=== PATIENT | male | born 1985 | race African-American/Black ===

== ENCOUNTER 2020-01-13 11:59 | Emergency (ER) | payer OTHER ==
[~2020-01-13] VITALS: Ht 188 cm; Wt 90.7 kg
[~2020-01-13 11:59] MED LIST: BACTRIM DS TAB1 EAC1 ORAL; IBUPROFEN800 MG ORAL; NORCO 5-325 TA1 EACH ORAL
--- NOTE | 2020-01-13 12:21 | Emergency Room Report ---
History of Present Illness General Chief Complaint: Upper Respiratory Illness Source: Patient Present Illness HPI 34-year-old male with no symptom past medical history other than daily marijuana smoker complaining of 1 week of cough and congestion and feeling pressure in chest after coughing. Denies any recent travel or coming contact with people who have travel. Denies fever and chills,. Reports that 1 week ago has sore throat and congestion. Denies tobacco smoke, alcohol intake, no other associate symptoms. Is sitting comfortably with stable vital signs. COVID-19 risk:Travel to affect: No Has patient experienced cunningham: No Allergies: Coded Allergies: No Known Allergies (Unverified , 09/20/14) Patient History Past Medical History: see triage record Past Surgical History: none Pertinent Family History: none Social History: Reports: drug use - Marijuana use Immunizations: UTD Reviewed Nursing Documentation: PMH: Agreed; PSxH: Agreed Nursing Documentation-PMH Past Medical History: No Stated History Review of Systems All Other Systems: negative except mentioned in HPI Physical Exam Vital Signs Date Time Temp Pulse Resp B/P (MAP) Pulse Ox O2 Delivery O2 Flow Rate FiO2 01/13/20 12:04 97.9 77 17 116/74 (88) 95 Room Air Sp02 EP Interpretation: reviewed, normal General Appearance: no apparent distress, alert, GCS 15, non-toxic Head: normocephalic, atraumatic Eyes: bilateral eye normal inspection, bilateral eye PERRL ENT: hearing grossly normal, normal pharynx, no angioedema, normal voice Neck: full range of motion, supple, no meningismus, no bony tend, supple/symm/ no masses Respiratory: chest non-tender, lungs clear, normal breath sounds, no rhonchi, no respiratory distress, no retraction, no wheezing, speaking full sentences Cardiovascular #1: regular rate, rhythm, no edema Gastrointestinal: normal bowel sounds, non tender, soft, non-distended, no guarding, no rebound Rectal: deferred Musculoskeletal: back normal, normal range of motion, gait/station normal, non- tender Neurologic: alert, motor strength/tone normal, oriented x3, sensory intact, responsive, speech normal Psychiatric: judgement/insight normal, memory normal, mood/affect normal, no suicidal/homicidal ideation Skin: no rash Lymphatic: no adenopathy Medical Decision Making PA Attestation All my diagnosis and treatment plans were reviewed ad discussed with my supervising physician Dr. Van Diagnostic Impression: Primary Impression: Pneumonitis ER Course 34-year-old male with no symptom past medical history other than daily marijuana smoker complaining of 1 week of cough and congestion and feeling pressure in chest after coughing. Denies any recent travel or coming contact with people who have travel. Denies fever and chills,. Reports that 1 week ago has sore throat and congestion. Denies tobacco smoke, alcohol intake, no other associate symptoms. Is sitting comfortably with stable vital signs. Ddx considered but are not limited to: bronchitis, PNA, URI viral, bacterial bronchitis, pneumonitis Vital signs: are WNL, pt. is afebrile H&PE are most consistent with: Pneumonitis ORDERS: Azithromycin, prednisone, Phenergan DM, Tessalon Perles, albuterol ED INTERVENTIONS: None required at this time. DISCHARGE: At this time pt. is stable for d/c to home. Will provide printed patient care instructions, and any necessary prescriptions. Care plan and follow up instructions have been discussed with the patient prior to discharge. Lungs are clear to auscultation, no further imaging needed. Patient is low risk for further evaluation, take medication as directed, follow-up primary care provider, increase oral hydration, worsening symptoms Last Vital Signs Date Time Temp Pulse Resp B/P (MAP) Pulse Ox O2 Delivery O2 Flow Rate FiO2 01/13/20 12:04 97.9 77 17 116/74 (88) 95 Room Air Disposition: HOME, SELF-CARE Condition: Stable Scripts Prednisone* (PREDNISONE*) 20 Mg Tablet 40 MG ORAL DAILY for 5 Days, #10 TAB Prov: Luz Sibley 01/13/20 Albuterol Sulfate (VENTOLIN HFA) 18 Gm Hfa.aer.ad 2 PUFFS INH EVERY 6 HOURS, #18 GM 0 Refills Prov: Luz Sibley 01/13/20 Benzonatate* (TESSALON PERLE*) 100 Mg Capsule 100 MG ORAL THREE TIMES A DAY, #21 PERLE Prov: Luz Sibley 01/13/20 D-Methorphan Hb/Prometh Hcl* (PROMETHAZINE-DM SYRUP*) 118 Ml Syrup 5 ML ORAL BEDTIME PRN for For Cough, #120 ML 0 Refills Prov: Luz Sibley 01/13/20 Azithromycin* (ZITHROMAX*) 250 Mg Tablet 250 MG ORAL DAILY, #6 TAB 0 Refills Take two tables once daily for 1 day, then one tablet once daily for 4 days. Prov: Luz Sibley 01/13/20 Patient Instructions: Pneumonitis Additional Instructions: Take medication as directed, follow-up with your primary care provider, refrain from smoking, if worsening symptoms return to the emergency room Luz Sibley Jan 13, 2020 12:21
[2020-01-13] MEDS ORDERED: PROMETHAZINE-D118 ML ORAL (12:22)
[2020-01-13] MEDS ORDERED: TESSALON PERLE100 MG ORAL (12:22)
[2020-01-13] MEDS ORDERED: VENTOLIN HFA18 GM INH (12:22)
[2020-01-13] MEDS ORDERED: PREDNISONE20 MG ORAL (12:22)
[2020-01-13] MEDS ORDERED: ZITHROMAX250 MG ORAL (12:22)
[2020-01-13 12:28] VITALS: BP 116/74
[2020-01-13 12:35] VITALS: BP 116/74
--- NOTE | 2020-01-13 12:35 | NUR ---
ER DISCHARGE NOTE: Patient is cleared to be discharged per ERMD, pt is aox4, on room air, with stable vital signs. pt was given dc and prescription instructions, pt was able to verbalize understanding, pt is able to ambulate with steady gait. pt took all belongings.
== END 2020-01-13 12:35 | disposition home or self-care (01) ==
LOC: EMR 12:30
DX: J18.9 Pneumonia, unspecified organism (principal)
CPT/HCPCS: 99282